=== PATIENT | male | born 1940 ===

== ENCOUNTER 2017-01-23 09:54 | Day surgery (SDC) | payer MEDICARE, OTHER ==
[2017-01-20 12:19] VITALS: BMI 29.0
[~2017-01-23 09:54] MED LIST: Bacitracin Ointment 30 GM TUBE ONE; Bupivacaine HCl 0.5% PF (10 ml) Inj ONE; ceFAZolin IV 1 gm in Dextrose 1 GM/50 ML BAG IVPB ONE; ceFAZolin IV 2 gm in Dextrose 0 GM/0 ML BAG IVPB ONE
[2017-01-23] MEDS ORDERED: ceFAZolin IV 2 gm in Dextrose 1 GM/50 ML BAG IVPB ONE (12:35)
[2017-01-23] MEDS ORDERED: Bacitracin Ointment 30 GM TUBE ONE (12:36)
[2017-01-23] MEDS ORDERED: Midazolam 2 MG/2 ML VIAL ONE ×2 (12:43→12:44)
[2017-01-23] MEDS ORDERED: Propofol 10 mg/ml Inj (20 ML) ONE (12:44)
[2017-01-23] MEDS ORDERED: Lidocaine 1% Inj (20ml) ONE (12:46)
[2017-01-23 15:40] VITALS: RESP 18; TEMP 97.8; O2SAT 96
[2017-01-23 16:36] VITALS: BP 140/74; PULSE 72
--- NOTE | 2017-01-25 00:08 | OP ---
PROCEDURE DATE: 01/23/2017 PREOPERATIVE DIAGNOSIS: Large right hydrocele. POSTOPERATIVE DIAGNOSIS: Large right hydrocele. PROCEDURE: Hydrocele repair and drainage of the hydrocele. DESCRIPTION OF PROCEDURE: While the patient in supine position and after starting anesthesia, genitalia prepped and draped in sterile fashion. The patient given 2 g Rocephin and the area of the incision infiltrated with Marcaine. A transverse incision carried on the right scrotum through the skin and subcutaneous tissue. The tunica is thick because of multiple previous aspirations which were done for years. The tunica opened, the hydrocele drained out. The skin fulgurated with coagulation. There was no active bleeding. The testicle delivered through the wound. The tunica vaginalis obliterated around the testicle, plicated to close the whole space using 3-0 chromic interruptedly and this way all the tunica closed around the testicle like the accordion in multiple areas. After checking the subcutaneous for bleeding and coagulated, the testicle with the tunica dropped back into the scrotum, irrigated a few times, subcutaneous tissue closed interruptedly, then the skin with subcutaneous tissue closed using 3-0 chromic. All the closure, all the repair was used by 3-0 chromic. The patient tolerated the procedure well. Pressure dressing applied and scrotal support positioned. The patient tolerated the procedure well and transferred in stable condition. Boris Solis MD
== END 2017-01-23 16:20 | disposition home or self-care (01) ==
LOC: C.SDS 09:54
PROVIDERS: ATTEND Specialist
DX: N43.0 Encysted hydrocele (principal); E11.9 Type 2 diabetes mellitus without complications; E78.5 Hyperlipidemia, unspecified
CPT/HCPCS: 55040; 82948; J0690; J2250; J2270; J2704; J3010